=== PATIENT | female | born 1970 | race Caucasian/White ===

== ENCOUNTER 2018-07-12 16:11 | Outpatient (REF) | payer MEDICAID, SELFPAY ==
[2018-07-12 21:18] LABS: Abs Immature Grans 0.01 k/cumm (0.0-0.09); Absolute Basophil Count 0.03 k/cumm (0.0-0.2); Absolute Eosinophil Count 0.03 k/cumm (0.0-0.7); Absolute Lymphocyte Count 1.54 k/cumm (1.2-3.4); Absolute Monocyte Count 0.32 k/cumm (0.11-0.7); Absolute Neutrophil Count 3.31 k/cumm (1.2-6.7); Basophils % 0.6; Eosinophils % 0.6; HCT 36.1 % (36.0-46.0); HGB 12.3 g/dL (12.0-15.5); Immature Grans % 0.2; Lymphocytes % 29.4; Mean Corp. HGB Concentration 34.1 g/dL (32.0-36.0); Mean Corpuscular Hemoglobin 21.8 pg (27.0-33.0); Mean Corpuscular Volume 64.1 fL (80-95); Monocytes % 6.1; Neutrophils % 63.1; RBC 5.63 m/cumm (4.00-5.20); RBC Distribution Width 15.4 % (11.7-14.6)
[2018-07-12 21:38] LABS: FREE T4 0.79 ng/dL (0.76-1.46); TSH 2.74 uIU/mL (0.358-3.74)
[2018-07-12 21:50] LABS: Platelet Count 275 x1000/uL (130-400)
[2018-07-12 22:31] LABS: Diff Comment RBC Morph Reviewed; Microcytosis 3+; Poikilocytes 2+; White Blood Cell Count 5.24 k/cumm (4.4-10.8)
== END 2018-07-12 16:31 ==
LOC: NCHCN 16:11
PROVIDERS: PCP Physician Assistant; Visit Provider Family Medicine
DX: F32.1 Major depressive disorder, single episode, moderate (principal)
CPT/HCPCS: 84439; 84443; 85025

== ENCOUNTER 2018-11-22 17:05 | Outpatient (REF) | payer MEDICAID, SELFPAY ==
[2018-11-22 22:01] LABS: ALT 19 U/L (12-78); AST 10 U/L (15-37); Albumin 3.6 g/dL (3.4-5.0); Alkaline Phosphatase 88 U/L (46-116); Anion Gap 7.3 mmol/L (3-11); BUN 13 mg/dL (7-18); Bilirubin, Total 0.4 mg/dL (0.2-1.0); CO2 26.7 mmol/L (21.0-32.0); CREATININE 0.71 mg/dL (0.55-1.02); Calcium 8.9 mg/dL (8.5-10.1); Chloride 104 mmol/L (98-107); Cholesterol 144 mg/dL (50-200); Glucose 92 mg/dL (70-100); HDL Cholesterol 64 mg/dL (40-60); LDL CHOLESTEROL 68 mg/dL (<100); Potassium 4.1 mmol/L (3.5-5.1); Sodium 138 mmol/L (136-145); TSH (W/Ref FT4) 0.02 uIU/mL (0.358-3.74); Total Protein 6.4 g/dL (6.4-8.2); Triglyceride 82 mg/dL (30-150); Vitamin B12 973 pg/mL (193-986)
[2018-11-22 22:21] LABS: FREE T4 0.46 ng/dL (0.76-1.46)
== END 2018-11-22 17:25 ==
LOC: NCHCN 17:05
PROVIDERS: PCP Physician Assistant; Visit Provider Family Medicine
DX: R19.8 Other specified symptoms and signs involving the digestive system and abdomen (principal); A09 Infectious gastroenteritis and colitis, unspecified; M21.619 Bunion of unspecified foot
CPT/HCPCS: 80053; 80061; 83721; 82607; 84439; 84443

== ENCOUNTER 2019-02-20 21:45 | Outpatient (REF) | payer MEDICAID, SELFPAY ==
[2019-02-20 21:03] LABS: TSH 3.57 uIU/mL (0.358-3.74)
== END 2019-02-20 22:05 ==
LOC: NCHCN 21:45
PROVIDERS: PCP Family Medicine; Visit Provider Family Medicine
DX: E03.9 Hypothyroidism, unspecified (principal)
CPT/HCPCS: 84439; 84443

== ENCOUNTER 2019-06-21 16:07 | Outpatient (REF) | payer MEDICAID, SELFPAY ==
--- NOTE | 2019-06-21 15:00 | PAPFT_PTH ---
PATIENT: JOSE MCMILLAN LOC: [facility] U#:[id number] AGE/SX: 48/F ROOM: RE06/21/[address]: Melisa Riley V : 1970 BED: DIS: 06/21/2019 SPEC #: [id number] RECD: 06/24/19 13:03 STATUS: BRUCE REYoly #: [id number] HOANG: 06/21/19 15:[address]: Melisa Riley V [facility] Cytology RECD BY: Jackie Dahl Tissues: 1 - CX/ENDOCX FOR PAP SMEARS Procedures: PAP THIN PREP/[facility] Screening HPV DNA PROBE Comments: [id number]
[2019-06-21 20:34] LABS: TSH 3.82 uIU/mL (0.36-3.74)
[2019-06-21 20:50] LABS: FREE T4 0.97 ng/dL (0.76-1.46)
[2019-06-24 16:32] LABS: CMV Ab, IgM Negative (Negative)
== END 2019-06-21 16:27 ==
LOC: NCHCN 16:07
PROVIDERS: PCP Family Medicine; Visit Provider Family Medicine
DX: E03.9 Hypothyroidism, unspecified (principal); R53.83 Other fatigue; Z12.4 Encounter for screening for malignant neoplasm of cervix; Z11.51 Encounter for screening for human papillomavirus (HPV); Z01.419 Encounter for gynecological examination (general) (routine) without abnormal findings
CPT/HCPCS: 80053; 80061; 88142; 83036; 84439; 84443; 86644; 86645; 87624

== ENCOUNTER 2019-09-17 17:12 | Outpatient (REF) | payer MEDICAID, SELFPAY ==
[2019-09-17 19:35] LABS: Abs Immature Grans 0.01 k/cumm (0.0-0.09); Absolute Eosinophil Count 0.07 k/cumm (0.0-0.7); Eosinophils % 1.1; HGB 11.8 g/dL (12.0-15.5); Immature Grans % 0.2; RBC Distribution Width 15.1 % (11.7-14.6)
[2019-09-17 19:57] LABS: C-Reactive Protein 0.05 mg/dL (0.0-0.3); TSH 2.23 uIU/mL (0.36-3.74)
[2019-09-17 20:09] LABS: Absolute Basophil Count 0.03 k/cumm (0.0-0.2); Absolute Lymphocyte Count 1.74 k/cumm (1.2-3.4); Absolute Monocyte Count 0.35 k/cumm (0.11-0.7); Absolute Neutrophil Count 3.99 k/cumm (1.2-6.7); Basophils % 0.5; HCT 35.6 % (36.0-46.0); Lymphocytes % 28.1; Mean Corp. HGB Concentration 33.1 g/dL (32.0-36.0); Mean Corpuscular Hemoglobin 20.8 pg (27.0-33.0); Mean Corpuscular Volume 62.8 fL (80-95); Monocytes % 5.7; Neutrophils % 64.4; RBC 5.67 m/cumm (4.00-5.20); White Blood Cell Count 6.19 k/cumm (4.4-10.8)
[2019-09-17 20:10] LABS: Platelet Count 314 x1000/uL (130-400)
[2019-09-17 21:18] LABS: Mean Platelet Volume 11.5 fL (8.0-11.0)
[2019-09-17 21:50] LABS: ESR 6 mm/hr (0-20)
[2019-09-17 22:14] LABS: Diff Comment RBC Morph Reviewed; Hypochromasia 2+; Microcytosis 3+
[2019-09-19 11:42] LABS: Lyme Ab w Rflx to Lyme Confirm Negative (Negative)
== END 2019-09-17 17:32 ==
LOC: NCHCN 17:12
PROVIDERS: PCP Family Medicine; Visit Provider Nurse Practitioner Family
DX: R53.83 Other fatigue (principal); M25.473 Effusion, unspecified ankle
CPT/HCPCS: 85652; 84443; 85025; 86140; 86618

== ENCOUNTER 2020-05-05 19:54 | Outpatient (REF) | payer MEDICAID, SELFPAY ==
[2020-05-05 20:09] LABS: Abs Immature Grans 0.01 10^3/uL (0.0-0.06); Absolute Basophil Count 0.05 10^3/uL (0.0-0.2); Absolute Eosinophil Count 0.07 10^3/uL (0.0-0.7); Absolute Lymphocyte Count 1.58 10^3/uL (1.2-3.4); Absolute Monocyte Count 0.41 10^3/uL (0.1-0.8); Absolute Neutrophil Count 2.67 10^3/uL (1.2-6.7); Eosinophils % 1.5; HGB 11.9 g/dL (11.2-15.7); Immature Grans % 0.2; MCH 21.3 pg (27.0-33.0); MCHC 32.2 % (32.0-36.0); MCV 66.3 fL (80-95); MPV 12.3 fL (8.0-11.0); Monocytes % 8.6; Neutrophils % 55.7; Platelet Count 326 10^3/uL (130-400); RBC 5.58 10^6/uL (3.93-5.22); RDW 14.9 % (11.7-14.6); RDW-SD 34.4 fL; WBC 4.79 10^3/uL (4.4-10.8)
[2020-05-05 20:38] LABS: ALT 24 U/L (14-59); AST 17 U/L (15-37); Alkaline Phosphatase 96 U/L (46-116); Anion Gap 9.8 mmol/L (3-11); BUN 13 mg/dL (7-18); Bilirubin, Total 0.7 mg/dL (0.2-1.0); CO2 25.2 mmol/L (21.0-32.0); CREATININE 0.86 mg/dL (0.55-1.02); Chloride 103 mmol/L (98-107); FREE T4 0.87 ng/dL (0.76-1.46); Glucose 85 mg/dL (74-106); Magnesium 2.1 mg/dL (1.8-2.4); Potassium 4.2 mmol/L (3.5-5.1); Sodium 138 mmol/L (136-145); TSH 2.11 uIU/mL (0.36-3.74); Total Protein 6.6 g/dL (6.4-8.2)
[2020-05-05 21:44] LABS: Hypochromasia 1+; Microcytosis 1+; Polychromasia Present
[2020-05-06 17:44] LABS: Thyroglobulin Antibody 19 U/mL (<=60); Thyroperoxidase Antibody <28 U/mL (<=60)
[2020-05-07 04:47] LABS: Vitamin D 25 Total 94.4 ng/ml (30-100)
[2020-05-07 09:46] LABS: Lyme Ab w Rflx to Lyme Confirm Negative (Negative)
[2020-05-08 23:37] LABS: Anaplasma phagocytophilum Negative (Negative); B. miyamotoi PCR Negative (Negative); Babesia divergens/MO-1 Negative (Negative); Babesia duncani Negative (Negative); Babesia microti Negative (Negative); Ehrlichia chaffeensis Negative (Negative); Ehrlichia ewingii/canis Negative (Negative); Ehrlichia muris eauclairensis Negative (Negative)
== END 2020-05-05 20:14 ==
LOC: NCHCN 19:54
PROVIDERS: PCP Family Medicine; Visit Provider Physician Assistant Medical
DX: R53.83 Other fatigue (principal); M79.10 Myalgia, unspecified site; D56.3 Thalassemia minor
CPT/HCPCS: 80053; 82306; 86376; 87798; 83735; 84439; 84443; 85025; 86618